=== PATIENT | male | born 1975 | race Caucasian/White ===

== ENCOUNTER 2019-07-07 09:03 | Observation (INO) | payer BC ==
[2019-07-07] VITALS (8 sets, daily range): BP systolic 130–160; BP diastolic 71–97; Ht 172.7 cm; Wt 95.5 kg
[~2019-07-07] VITALS: Ht 172.7 cm; Wt 95.5 kg
--- NOTE | ~2019-07-07 | HEMODYNAMI ---
PATIENT:AMRIK NEGRETE MEDICAL RECORD: [id number] : 75 [id number] ADMISSION DATE: 07/07/19 Generatedon:07/08/201911:01 Patient name: AMRIK NEGRETE Patient #: [id number] : 1975 Date of study: 07/08/2019 Page: Of Hemodynamic Procedure Report Patient Data Patient Demographics Procedure consent was obtained First Name: AMRIK Gender: Male Last Name: CADEN : 1975 Patient #: [id number] Age: 44 year(s) Race: Unknown SSN: [id number] Additional ID: [id number] Contact details [address]: [address] [place] [address] State: [place] City: [place] Zip code: [address] Past Medical History Allergies Allergen Reaction Date Comments Reported Other allergy 07/08/2019 pcn Admission Admission Data Admission Date: 07/07/2019 Admission Time: 9:40 Arrival Date: 07/08/2019 Arrival Time: 0:00 Admit Source: Other Insurance Payor: Private Room #: D.2125 health insurance [facility] #: [id number] Height (in.): 67.72 BSA: 2.08 (m2) Height (cm.): 172 BMI: 32.11 (kg/m2) Weight (lbs.): 209.44 Weight (kg.): 95 Lab Results Lab Result Date: 07/08/2019 Lab Result Time: 0:00 Biochemistry Name Units Result Min Max BUN mg/dl 12 --(-*--)-- 7 18 Creatinine mg/dl 0.8 --(-*--)-- 0.6 1.3 CBC Name Units Result Min Max Hemoglobin g/dl 14 --(*---)-- 13.5 17.5 Procedure Procedure Types Cath Procedure Diagnostic Procedure LHC LHC w/Coronaries Procedure Description Procedure Date Procedure Date: 07/08/2019 Procedure Start Time: 10:44 Procedure End Time: 10:58 Procedure Staff Name Function Denny Rodriguez MD Performing Physician Fransisca Wade RN Printing Equipment Mechanic Saige Martell RT Monitor Fransisca Wade RN Nurse Piper Barroso RT Scrub Indication Chest pain Procedure Data Cath Procedure Fluoroscopy Diagnostic fluoroscopy Total fluoroscopy Time: 3 time: 3 min min Diagnostic fluoroscopy Total fluoroscopy dose: 281 dose: 281 mGy mGy Contrast Material Contrast Material Type Amount (ml) Isovue 300 58 Entry Location Entry Primary Successful Side Size Upsize Upsize Entry Closure Turner ccessful Closure Location (Fr) 1 (Fr) 2 (Fr) Remarks Device Remarks Radial Right 6 Fr Mechanical artery Short Compression Estimated blood loss: 5 ml Diagnostic catheters Device Type Used For End Catheter Placement DIAGNOSTIC Azalea 110cm 5 Procedure Fr catheter ([id number]) DIAGNOSTIC AR MOD 5Fr Procedure Catheter ([id number]) Procedure Complications No complications Procedure Medications Medication Administration Route Dosage Oxygen etCO2 Nasal cannula 2 l/min Lidocaine 2% added to field 20 Heparin Flush Bag added to field 2 bags (1000units/500ml NS) 0.9% NaCl I.V. 100 ml/hr Radial Cocktail added to field 1 syringe (Verapamil 2mg/Nitro 400mcg/Heparin 1500units) Versed I.V. 2 mg Fentanyl I.V. 100 mcg Versed I.V. 2 mg Fentanyl I.V. 100 mcg Hemodynamics Rest BSA: 2.08 (m2) HGB: 14 (g/dl) O2 Consumption: Estimated: 275.2 (ml/min) O2 Consu mption indexed: Estimated:132.31 (ml/min/m) Heart Rate: 100 (bpm) Pressure Samples Time Site Value (mmHg) Purpose Heart Use Rate(bpm) 10:50 LV 119/16,18 Snapshot 100 10:51 AO 106/88(95) Pullback 94 10:51 LV 97/32,12 Pullback 94 Gradients Valve Time Site 1 Site 2 Mean SEP/DFP Peak To Heart Use (mmHg) (sec/min) Peak Rate (mmHg) (bpm) Aortic 10:51 LV AO 0 94 97/32,12 106/88(95) Calculations Valve P-P Mean Valve Index Valve Source Name Gradient Area Flow (cm2) Aortic 0 0 Snapshots Pre Cath Intra NCS Post Cath Vital Signs Time Heart Resp SPO2 etCO2 NIBP (mmHg) Rhythm Pain Sedation Rate (ipm) (%) (mmHg) Status Level (bpm) 10:35:38 90 15 96 40.6 147/103(118) NSR (Missing) 10(A) 10:39:47 88 11 93 36.1 151/100(123) NSR (Missing) 10(A) 10:43:57 94 11 95 36.8 139/99(133) NSR (Missing) 10(A) 10:48:58 86 13 95 36.1 157/98(114) NSR (Missing) 10(A) 10:57:04 102 13 96 38.3 124/86(107) NSR (Missing) 10(A) Medications Time Medication Route Dose Verified Delivered Reason Notes Effectiveness by by 10:35:09 Oxygen etCO2 2 l/min Denny Gongora used for Nasal [facility] Joaquin Wade RN procedure cannula 10:35:18 Lidocaine 2% added 20ml Denny Baldwin for local to vial [facility] anesthetic field MD GUZMÁN 10:35:24 Heparin Flush added 2 bags Denny Baldwin used for Bag to [facility] procedure (1000units/500ml field MD GUZMÁN NS) 10:35:35 0.9% NaCl I.V. 100 Dennykeli Stormie Per ml/hr [facility] Joaquin Wade RN physician 10:35:42 Radial Cocktail added 1 Denny Baldwin for (Verapamil to syringe [facility] vasodilation 2mg/Nitro field MD GUZMÁN 400mcg/Heparin 1500units) 10:41:42 Versed I.V. 2 mg Denny Stormie for sedation [facility] Joaquin Wade RN, MD 10:41:48 Fentanyl I.V. 100 mcg Denny Gongora for sedation [facility] Joaquin Wade RN, MD 10:49:55 Versed I.V. 2 mg Denny Stormie for sedation [facility] Joaquin Wade RN, MD 10:49:59 Fentanyl I.V. 100 mcg Denny Gongora for sedation [facility] Joaquin Wade RN, MD Procedure Log Time Note 10:15:55 Admit Source: Other 10:15:57 Arrival Date: 07/08/2019 12:00:00 AM 10:16:22 Insurance Payor : Private health insurance 10:16:27 Patient Height : 67.72 inches 10:16:30 Patient Weight : 209.44 lbs 10:17:20 Lab Result : BUN 12 mg/dl 10:17:20 Lab Result : Hemoglobin 14 g/dl 10:17:20 Lab Result : Creatinine 0.8 mg/dl 10:17:27 Diagnostic Cath Status : Urgent 10:17:57 Indication : Chest pain 10:18:13 Procedure Status Urgent Heart Cath (IP). 10:18:17 Fransisca Wade RN sent for patient. Start room use. 10:18:19 Time tracking: Regular hours (M-F 7:00 - 5:00) 10:18:23 Plan of Care:Hemodynamics will remain stable., Cardiac rhythm will remain stable., Comfort level will be maintained., Respiratory function will remain adequate., Patient/ family verbilizes understanding of procedure., Procedure tolerated without complication., Recovers from procedure without complications.. 10:18:48 Patient received from Med II to CCL 3 Alert and oriented. Tansferred to table in Supine position. 10:18:53 Signed procedure consent form obtained from patient. 10:18:54 Warm blankets applied, and mansoor hugger turned on for patient comfort. 10:18:55 Correct patient and procedure confirmed by team. 10:19:18 H&P Date Dictated: 07/08/2019 Within 30 days and on chart., H&P Addendum completed by physician on day of procedure. (MUST COMPLETE FOR ALL OUTPATIENTS). 10:19:21 Pre-procedure instructions explained to patient. 10:19:24 Family in waiting room. 10:19:26 Patient NPO since Midnight. 10:19:41 Patient allergic to Other allergypcn 10:19:59 Is the patient allergic to Iodine/contrast media? No. 10:20:01 Was the patient premedicated? Yes 10:20:12 Maximum allowable contrast dose (3.7 X eGFR X 0.75)249 ml. 10:20:16 1) 90+ Normal kidney functon but urine findings or structural abnormalities or genetic trait point to kidney disease. 10:20:29 Snore? Yes 10:20:36 Sleep apnea? Unknown 10:20:42 Is patient on blood thinner?No 10:20:45 Patient diabetic? No. 10:21:45 Dentures? No ? 10:34:41 Vital chart was started 10:35:09 Oxygen 2 l/min etCO2 Nasal cannula was administered by Fransisca Wade RN; used for procedure; Verbal order read back and verified. 10:35:18 Lidocaine 2% 20ml vial added to field was administered by Denny Rodriguez MD; for local anesthetic; Verbal order read back and verified. 10:35:24 Heparin Flush Bag (1000units/500ml NS) 2 bags added to field was administered by Denny Rodriguez MD; used for procedure; Verbal order read back and verified. 10:35:35 0.9% NaCl 100 ml/hr I.V. was administered by Fransisca Wade RN; Per physician; Verbal order read back and verified. 10:35:42 Radial Cocktail (Verapamil 2mg/Nitro 400mcg/Heparin 1500units) 1 syringe added to field was administered by Denny Rodriguez MD; for vasodilation; Verbal order read back and verified. 10:36:24 Patient pain scale 0/10 ?. 10:36:30 IV patent on arrival in right hand with 0.9% NaCl at [facility]. 10:36:33 Lab results completed and on chart. 10:36:40 Stress Test: no; N/A ? 10:36:45 Right Radial & Right Groin area was prepped with chlora-prep and draped in sterile fashion 10:36:46 Alarms reviewed by R. N. 10:36:46 Sharps counted by scrub and verified by R.N. 10:39:58 Physician arrived 10:40:02 Zero performed for pressure channel P1 10:40:11 --------ALL STOP TIME OUT------ 10:40:11 Final Timeout: patient, procedure, and site verified with staff and physician. All members of the team are in agreement. 10:40:13 Right Radial & Right Groin site verified by team. 10:40:18 Fire Safety Assessment: A--An alcohol-based skin anteseptic being used preoperatively., C--Open oxygen or nitrous oxide is being used., D--An ESU, laser, or fiber-optic light is being used. 10:40:26 Physical assessment completed. ASA score P 2 - A patient with mild systemic disease as per Denny Rodriguez MD. 10:40:30 Sedation plan: IV Moderate Sedation Medication:Versed, Fentanyl 10:40:38 Use device set Radial Dx or PCI 10:40:42 ACIST Syringe (09643) opened to sterile field. 10:40:42 Medline Cath Pack ([id number]) opened to sterile field. 10:40:43 Bag Decanter () opened to sterile field. 10:40:44 ACIST Hand Control (78941) opened to sterile field. 10:40:44 ACIST Manifold (32766) opened to sterile field. 10:40:46 MBrace Wrist Support ([id number]) opened to sterile field. 10:40:48 EMERALD Guide Wire (748-257) opened to sterile field. 10:40:49 SHEATH 6FR RAIN (9229120) opened to sterile field. 10:41:42 Versed 2 mg I.V. was administered by Fransisca Wade RN; for sedation; Verbal order read back and verified. 10:41:48 Fentanyl 100 mcg I.V. was administered by Fransisca Wade RN; for sedation; Verbal order read back and verified. 10:43:39 Procedure started. 10:43:39 Full Disclosure recording started 10:44:35 Local anesthetic to right radial artery with Lidocaine 2% by Denny Rodriguez MD.INITIAL ACCESS ONLY 10:44:45 A 6 Fr Short sheath was inserted into the Right Radial artery 10:47:47 j wire advanced. 10:47:55 A DIAGNOSTIC Azalea 110cm 5 Fr catheter (994035) was advanced over the wire and used for Procedure. 10:49:46 LV angiography performed. 10:49:51 LV gram done using MARTIN 10:49:55 Versed 2 mg I.V. was administered by Fransisca Wade RN; for sedation; Verbal order read back and verified. 10:49:59 Fentanyl 100 mcg I.V. was administered by Fransisca Wade RN; for sedation; Verbal order read back and verified. 10:50:59 EF : 55 % 10:51:01 LCA angiography performed. 10:52:45 Catheter removed. 10:53:35 A DIAGNOSTIC AR MOD 5Fr Catheter ([id number]) was advanced over the wire and used for Procedure. 10:54:25 RCA angiography performed. 10:55:58 ZEPHYR REGULAR TR BAND (553257) opened to sterile field. 10:56:31 Catheter removed. 10:56:44 Sheath removed intact; hemostasis achieved with Mechanical Compression to the Right Radial artery. 10:56:46 Procedure ended.(Physican Out) 10:57:02 Fluoroscopy time 03.00 minutes. 10:57:07 Fluoroscopy dose: 281 mGy 10:57:07 Flurop Dose total: 281 10:57:12 Dose Area Product 2097 mGy/cm. 10:57:16 Contrast amount:Isovue 300 58ml. 10:57:19 Maximum allowable dose exceeded? No. 10:57:20 Sharps counted by scrub and verified by R.N. 10:57:24 [place] band inflated with 10cc of air. 10:57:36 Post Procedure Pulses reassessed and unchanged 10:57:46 Post-procedure physical assessment completed. ASA score P 2 - A patient with mild systemic disease as per Denny Rodriguez MD. 10:57:49 Post procedure rhythm: unchanged. 10:57:53 Estimated blood loss: 5 ml 10:57:54 Post procedure instruction explained to patient.Patient verbalizes understanding. 10:58:00 Procedure Complication : No complications 10:58:04 Vital chart was stopped 10:58:07 [facility] Findings: mild to moderate CAD (<70%) 10:58:08 Operative report dictated upon procedure completion. 10:58:10 See physician's report for complete and final results. 10:58:12 Report given to [facility]. 10:58:16 Patient transfered to [facility] with Bed. 10:58:18 Procedure ended. 10:58:18 Full Disclosure recording stopped 11:00:02 End room use (Document Last) Device Usage Item Name Manufacture Quantity Catalog Hospital Part Current Minima l Lot# / Number Charge Number Stock Stock Serial# Code ACIST Acist 1 29726 208072 717128 172804 20 Syringe Medical (74969) Systems Inc Medline Medline 1 [id number] 28502 044267 5 Cath Pack ([id number]) Bag Microtek 1 333329 15343 639767 5 Decanter Medical Inc. () ACIST Hand Acist 1 53519 357889 328272 762637 5 Control Medical (34626) Systems Inc ACIST Acist 1 19548 658392 617490 214604 5 Manifold Medical (79299) Systems Inc MBrace Advanced 1 140-0250-00 513973 35691 196150 5 Wrist Vascular Support Dynamics ([id number]) EMERALD Cardinal 1 666-881 005275 949928 384563 5 Guide Wire [facility] (584-562) SHEATH 6FR Cardinal 1 5776960 615809 1550460 874973 5 [facility] (0673047) DIAGNOSTIC Terumo 1 40-6980 697507 635276 060894 5 Azalea 110cm 5 Fr catheter (604367) DIAGNOSTIC Cardinal 1 [id number] 885330 402455 138710 15 AR MOD 5Fr Health Catheter (017852O) ZEPHYR Cardinal 1 436366 497930 9137783 596110 5 REGULAR TR Health BAND (601428) Signature Audit [place] Stage Time Signature Unsigned Intra-Procedure 07/08/2019 Saige Martell 11:00:02 AM RT(R) Intra-Procedure 07/08/2019 Denny Jewell 11:01:32 AM Joaquin GUZMÁN [place] [id number] [place] [address]
[2019-07-07] MEDS ORDERED: LISINOPRIL20 MG PO (09:10)
[2019-07-07] MEDS ORDERED: CLARITIN 10 MG10 MG PO (09:11)
[2019-07-07] MEDS ORDERED: LIPITOR20 MG PO (09:11)
[2019-07-07] MEDS ORDERED: OMEPRAZOLE20 M1 PO (09:11)
[2019-07-07 09:35] LABS: BASOPHILS 0.3 % (0-2); CALC OSMOLALITY 278 mosm/kg (275-300); CALCIUM 8.5 mg/dL (8.5-10.1); CHLORIDE - SERUM 104 mmol/L (98-107); CREATININE - SERUM 0.9 mg/dL (0.6-1.3); EOSINOPHILS 4.7 % (0-7); GLUCOSE 103 mg/dL (74-106); HEMATOCRIT 45.6 % (42.0-54.0); HEMOGLOBIN 15.3 g/dL (13.5-17.5); IMMATURE GRANULOCYTES 0.1 % (0-5); LYMPHOCYTES 23.7 % (15-50); MCH 29.1 pg (26.0-34.0); MCHC 33.6 g/dL (31.0-37.0); MCV 86.7 fL (80.0-100.0); MEAN PLATELET VOLUME 10.7 fL (7.4-10.4); MONOCYTES 8.3 % (2-11); NEUTROPHILS 62.9 % (40-80); PLATELET COUNT 195 10x3/uL (130-400); RBC 5.26 10x6/uL (4.20-6.10); RDW 13.3 % (11.5-14.5); SODIUM 140 mmol/L (136-145); UREA NITROGEN 12 mg/dL (7-18); WBC 7.5 10x3/uL (4.8-10.8); eGFR NON AFRICAN AMERICAN > 90 mL/min (90-120)
[2019-07-07 09:43] LABS: APTT 27.5 SECONDS (22.8-39.4); INR 0.96 (0.85-1.17); PROTIME 12.7 SECONDS (11.6-15.0)
[2019-07-07 09:50] LABS: ALKALINE PHOSPHATASE 61 U/L (46-116); ALT (SGPT) 44 U/L (10-68); BILIRUBIN - TOTAL 0.42 mg/dL (0.2-1.3); CKMB 0.7 U/L (0.0-3.6); CREATINE KINASE 161 UL (21-232); PROTEIN - SERUM 7.7 g/dL (6.4-8.2)
[2019-07-07 09:51] LABS: TROPONIN-I < 0.017 ng/mL (0.000-0.060)
--- NOTE | 2019-07-07 13:06 | NUR ---
RESTING IN BED. NO C/O. EXPL POC/AWAITING BED ASSSIGNMENT VERB UNDER
--- NOTE | 2019-07-07 15:48 | NUR ---
Attempt to call report at this time, spoke with sophia who states the nurse is currently on the phone with the plant maintenance manager and the room is not clean. Accepting nurse will return call for report when available
[2019-07-07 15:54] LABS: CKMB 0.8 U/L (0.0-3.6); CREATINE KINASE 138 UL (21-232); TROPONIN-I < 0.017 ng/mL (0.000-0.060)
--- NOTE | 2019-07-07 17:28 | NUR ---
Report given to Juliann DELANEY, patient to be admitted to room 3141
--- NOTE | 2019-07-07 17:40 | NUR ---
NORMAL SALINE INFUSING AT 125ML/HR FOR ADMISSION
--- NOTE | 2019-07-07 17:54 | NUR ---
RECIVED FROM ER PER WC. TO ROOM 2125. ADMIT PER RN
[2019-07-07 23:49] LABS: CKMB 0.8 U/L (0.0-3.6); CREATINE KINASE 136 UL (21-232); TROPONIN-I < 0.017 ng/mL (0.000-0.060)
[2019-07-08 01:05] VITALS: BP 139/62
--- NOTE | 2019-07-08 01:23 | NUR ---
RESTING WITH EYES CLOSED, RESPERATIONS EVEN, NO S/S DISTRESS NOTED.
[2019-07-08 04:33] LABS: BASOPHILS 0.3 % (0-2); EOSINOPHILS 6.8 % (0-7); IMMATURE GRANULOCYTES 0.2 % (0-5); LYMPHOCYTES 25.9 % (15-50); MCH 28.4 pg (26.0-34.0); MCHC 32.6 g/dL (31.0-37.0); MCV 87.2 fL (80.0-100.0); MONOCYTES 9.6 % (2-11); NEUTROPHILS 57.2 % (40-80); PLATELET COUNT 192 10x3/uL (130-400); RBC 4.93 10x6/uL (4.20-6.10); RDW 13.4 % (11.5-14.5); WBC 6.6 10x3/uL (4.8-10.8)
[2019-07-08 04:45] VITALS: BP 117/63
[2019-07-08 05:00] LABS: ALBUMIN 3.3 g/dL (3.4-5.0); ALKALINE PHOSPHATASE 56 U/L (46-116); ALT (SGPT) 42 U/L (10-68); BILIRUBIN - TOTAL 0.22 mg/dL (0.2-1.3); CALC OSMOLALITY 283 mosm/kg (275-300); CALCIUM 7.9 mg/dL (8.5-10.1); CHLORIDE - SERUM 107 mmol/L (98-107); CKMB 0.5 U/L (0.0-3.6); CREATINE KINASE 108 UL (21-232); CREATININE - SERUM 0.8 mg/dL (0.6-1.3); GLUCOSE 112 mg/dL (74-106); MAGNESIUM - SERUM 2.1 mg/dL (1.8-2.4); PHOSPHOROUS 3.5 mg/dL (2.5-4.9); POTASSIUM - SERUM 3.9 mmol/L (3.5-5.1); PROTEIN - SERUM 6.6 g/dL (6.4-8.2); SODIUM 142 mmol/L (136-145); UREA NITROGEN 12 mg/dL (7-18); eGFR NON AFRICAN AMERICAN > 90 mL/min (90-120)
[2019-07-08 05:08] LABS: TROPONIN-I < 0.017 ng/mL (0.000-0.060)
--- NOTE | 2019-07-08 07:36 | NUR ---
ASSESSMENT DONE. DENIES NEEDS
--- NOTE | 2019-07-08 09:25 | NUR ---
I have reviewed this patient and I concur with the Shift Assessment completed by the Licensed Practical Nurse today this shift.
[2019-07-08 09:27] LABS: CHOL - HDL RATIO 4.5 ratio (2.3-4.9); LDL-HDL RATIO 2.2 ratio (1.5-3.5)
[2019-07-08 10:21] VITALS: BP 151/93
--- NOTE | 2019-07-08 12:10 | NUR ---
CUP IN ROOM FOR UA
[2019-07-08 14:52] VITALS: BP 108/67
--- NOTE | 2019-07-08 15:43 | NUR ---
DC GIVEN TO PT
--- NOTE | 2019-07-08 15:50 | NUR ---
DC HOME PER PERSONAL CAR
--- NOTE | 2019-07-09 08:23 | MORECARE ---
CASE MANAGEMENT DISCHARGE SUMMARY PATIENT: AMRIK NEGRETE UNIT: [id number] ADM DATE: 07/07/19 AGE: 44 : 75 SEX: M ROOM/BED: D.0255 AUTHOR: DANDRE ANGLIN PHYSICIAN: REFERRING PHYSICIAN: AMADOR LONG MD DATE OF SERVICE: 07/09/19 Discharge Plan Patient Name: AMRIK NEGRETE [facility] : 1975 Planned Disposition: Home Anticipated Discharge Date: 07/08/19 Discharge Date: 07/08/2019 Expected LOS: 1 Initial Reviewer: [email or web address] Initial Review Date: 07/09/2019 Generated: 07/09/19 9:23 am Patient Name: AMRIK NEGRETE Page 22585 at 0823 All edits/amendments must be made on the electronic document DICTATION DATE: 07/09/19822 LABEL CUTTER: ADA 07/09/19822 RPT#: [id number] DC DATE:07/08/19 STATUS: DIS IN [facility] [address] [place] [address] END OF REPORT
--- NOTE | 2019-07-09 13:25 | OP ---
PATIENT NAME: AMRIK NEGRETE MEDICAL RECORD: [id number] :75 LOCATION:D.M2 D.2125 ADMISSION DATE:07/07/19 SURGEON: BEAU NICOLAS MD DATE OF OPERATION: 07/08/2019 PROCEDURE: Left heart catheterization, selective coronary angiography, right radial approach. CATHETERS: A 5-Kazakh sheath, 5/4 left and right Beto, 5/4 pig. The procedure was well tolerated. The patient was returned to ruiz. Sheath was removed. TR band was placed. FINDINGS: Left ventriculography in 30-degree MARTIN view: Normal wall motion and normal systolic function. CORONARY ANATOMY: LEFT MAIN: Left main is free of disease. LAD: Free of disease in the diagonal system. CIRCUMFLEX: Free of disease in the marginal system. RIGHT CORONARY ARTERY: Dominant artery, gives rise to PDA, free of disease. IMPRESSION: Normal left ventricular function, normal coronary anatomy. TRANSINT:[id number] Voice Confirmation ID: [id number] DOCUMENT ID: [id number] BEAU NICOLAS MD at 1325 CC: [id number] DICTATION DATE: 07/08/19 1059 HOSPITAL ADMINISTRATIVE ASSISTANT: 07/08/19 1518 DIS IN 07/08/[address] [facility] [address] [place] [address]
--- NOTE | 2019-07-09 13:25 | CN ---
PATIENT NAME:AMRIK NEGRETE MEDICAL RECORD: [id number] : 75 LOCATION:D. D.2125 ADMIT DATE: 07/07/19 ACCOUNT: [id number] CONSULTING PHYSICIAN: BEAU NICOLAS MD REFERRING PHYSICIAN: AMADOR LONG MD DATE OF CONSULTATION: 07/08/2019 HISTORY OF PRESENT ILLNESS: A 44-year-old gentleman with no known history of coronary artery disease, has history of hypertension, history of hyperlipidemia, admitted with chest pain, pressure and tightness, some radiating to left jaw, started more fatigue, effort intolerance as of late. This has been ongoing for the past week or so, had rest symptomology on day of admission. We are asked to see him concerning his cardiovascular status. PAST MEDICAL HISTORY: Includes: 1. History of hypertension. 2. Hyperlipidemia. MEDICATIONS: Include loratadine 10 mg p.o. every day, lisinopril 20 p.o. b.i.d., atorvastatin 20 mg p.o. at bedtime, omeprazole 20 mg p.o. every day. ALLERGIES: PENICILLIN. SOCIAL HISTORY: Works, nonsmoker. Easily takes care of all his ADLs, does report more fatigability lately. No set exercise program. REVIEW OF SYSTEMS: The patient reports easy bruising but reports no swollen glands. The patient reports no fever, no night sweats, no significant weight gain, no significant weight loss. No significant exercise tolerance. The patient reports no dry eyes, no irritation, no vision change. Patient reports no difficulty hearing and no ear pain. Patient reports no frequent nose bleeds or nose and sinus problems. Patient reports on arm pain on exertion. No shortness of breath while lying down. No history of heart murmur. Patient reports no cough, no wheezing or coughing up blood. Patient reports no abdominal pain, no vomiting. Normal appetite. No diarrhea and not vomiting blood. No nausea and no constipation. Patient reports no incontinence. No difficulty urinating. No hematuria. No increased frequency. Patient reports no muscle aches. No weakness, no arthralgias, no back pain. No swelling of the extremities. Patient reports no abnormal mole, no jaundice, no rashes. Reports no loss of consciousness. No weakness and no numbness. No seizures, dizziness, or headaches. The patient reports no depression, no sleep disturbance, feeling safe in a relationship and no alcohol abuse. Patient reports on fatigue. Reports no runny nose or sinus pressure. No itching, no hives, and no frequent sneezing. PHYSICAL EXAMINATION: GENERAL: Pleasant gentleman in no acute distress, appears stated age. VITAL SIGNS: Blood pressure 151/93, pulse 90 and regular. HEENT: Normocephalic, atraumatic. NECK: No JVD or bruit. HEART: Regular. No gallops are noted. LUNGS: Good air excursion. ABDOMEN: Soft, nontender. EXTREMITIES: Pulses 2+ with no edema. CONSULT REPORT [id number] AMRIK NEGRETE DIAGNOSTIC DATA: EKG shows a borderline LVH by voltage. IMPRESSION: Progressive angina with rest symptomology, multiple risk factors. PLAN: For angiography, intervention based on above. TRANSINT:[id number] Voice Confirmation ID: [id number] DOCUMENT ID: [id number] BEAU NICOLAS MD at 1325 CC: [id number] DICTATION DATE: 07/08/19 1208 VOLUNTEER ASSISTANT: 07/08/19 1613 DIS IN 07/08/19 [facility] [address] [place] [address]
== END 2019-07-08 15:51 | disposition home or self-care (01) ==
LOC: D.ER 09:03 → D.M2 09:40 → OBSVTIME 15:49 → D.M2 07-08 15:51
PROVIDERS: Family Medicine; Internal Medicine Interventional Cardiology; ADMIT Internal Medicine Nephrology; ATTEND Internal Medicine Nephrology
DX: I20.9 Angina pectoris, unspecified (principal); I10 Essential (primary) hypertension; E78.5 Hyperlipidemia, unspecified; K21.9 Gastro-esophageal reflux disease without esophagitis; R07.9 Chest pain, unspecified